=== PATIENT | male | born 1955 | race Caucasian/White ===

== ENCOUNTER 2017-11-27 08:36 | Emergency (ER) | payer BC ==
[~2017-11-27] VITALS: Ht 172.7 cm; Wt 110.9 kg
[2017-11-27] MEDS ORDERED: epiNEPHrine 1 mg/ml inj SQ STA ×2 (08:46→09:35)
[2017-11-27] MEDS ORDERED: normal saline 1000ML IV soln IVB ONE (08:50)
[2017-11-27] MEDS ORDERED: tranexamic acid 100mg/ml inj. IV ONE (08:50)
[2017-11-27] MEDS ORDERED: methylPREDNISolone sod succ 125mg/2ml vial IV ONE (08:50)
[2017-11-27] MEDS ORDERED: diphenhydrAMINE 50 mg/ml inj IV ONE (08:50)
[2017-11-27] MEDS ORDERED: famotidine/PF 10 mg/ml inj IV ONE (08:50)
[2017-11-27 09:07] LABS: BASOPHILS # (AUTO) 0.1 X10'3 (0-0.2); BASOPHILS % (AUTO) 0.6 % (0-1); EOSINOPHILS # (AUTO) 0.1 X10'3 (0-0.9); EOSINOPHILS % (AUTO) 1.1 % (0-6); HEMATOCRIT 49.7 % (42.0-52.0); HEMOGLOBIN 16.9 g/dl (14.0-17.9); LYMPHOCYTES % (AUTO) 29.7 % (21-51); MEAN CORPUSCULAR HEMOGLOBIN 30.1 PG (27.0-31.0); MEAN CORPUSCULAR HGB CONC 34.1 % (33.0-36.5); MEAN CORPUSCULAR VOLUME 88.4 FL (78-98); MEAN PLATELET VOLUME 7.3 FL (7.4-10.4); MONOCYTES # (AUTO) 0.5 X10'3 (0-0.9); MONOCYTES % (AUTO) 4.9 % (2-12); NEUTROPHILS # (AUTO) 6.4 X10'3 (1.8-7.7); NEUTROPHILS % (AUTO) 63.7 % (42-75); PLATELET COUNT 312 X10'3 (140-440); RED BLOOD COUNT 5.62 X10'6 (4.70-6.10); RED CELL DISTRIBUTION WIDTH 13.4 % (11.5-14.5)
[2017-11-27 09:16] LABS: INR 2.9 INR; PROTHROMBIN TIME 28.7 SECONDS (9.0-12.0)
[2017-11-27] MEDS ORDERED: ondansetron/PF 4mg/2ml inj IV ONE (09:20)
[2017-11-27 09:26] LABS: ALANINE AMINOTRANSFERASE 39 U/L (12-78); ALBUMIN 3.8 G/DL (3.4-5.0); ALKALINE PHOSPHATASE 48 IU/L (46-116); ANION GAP 12 (8-16); ASPARTATE AMINO TRANSFERASE 18 U/L (10-37); BILIRUBIN,TOTAL 0.8 MG/DL (0.1-1.0); BLOOD UREA NITROGEN 21 MG/DL (7-18); BUN/CREATININE RATIO 17.6 (5.4-32.0); CALCIUM 9.1 MG/DL (8.5-10.1); CHLORIDE 97 MMOL/L (99-107); CREATININE 1.19 MG/DL (0.60-1.10); GLUCOSE 142 MG/DL (70-104); POTASSIUM 3.8 MMOL/L (3.5-5.1); SODIUM 134 MMOL/L (135-145); TOTAL CARBON DIOXIDE 24.7 MMOL/L (24-32); TOTAL PROTEIN 7.5 G/DL (6.4-8.2); eGFR 62 ML/MIN
[2017-11-27] MEDS ORDERED: AMLO5TAB4 PO (10:40)
[2017-11-27 10:48] VITALS: BP 155/100
== END 2017-11-27 10:45 | disposition home or self-care (01) ==
LOC: ER 08:36
DX: T78.3XXA Angioneurotic edema, initial encounter (principal); I10 Essential (primary) hypertension; Z88.0 Allergy status to penicillin; Z79.899 Other long term (current) drug therapy; Z79.01 Long term (current) use of anticoagulants
CPT/HCPCS: 36415; 80053; 85025; 85610; 86885; 86900; 86901; 96372; 96374; 96375; 99291; J0171; J1200; J2405; J2930; J3490; J7030

== ENCOUNTER 2021-08-04 18:50 | Emergency (ER) | payer MEDICARE ==
[~2021-08-04] VITALS: Ht 175.3 cm; Wt 103.5 kg
[~2021-08-04 18:50] MED LIST: AMLO5TAB4 PO
--- NOTE | 2021-08-04 19:45 | NUR ---
Pt presents to the ed with c/o left eye pain and H/As on intensity of 03/09, the pt states his pain started over a month ago when he had upper resp congestions with left earache and sinus congestion; the pt states he's up to date on all the COVID vaccines; the pt states he went to the [facility] where he was prescribed three different antibiotics - Keflex and Z-juan jose over the course of six weeks; the pt states he visited his eye doctor a week ago, whre he was prescribed steroid eye drops which aggravated his eye problem; the pt is A/O, appears to be in NAD; he denies fever/chills, sorethroat, SOB, CP, N/V/D; awaits provider.
[2021-08-04 21:24] LABS: BASOPHILS % (AUTO) 0.4 % (0-1); EOSINOPHILS # (AUTO) 0.2 X10'3 (0-0.9); LYMPHOCYTES # (AUTO) 3.1 X10'3 (1.1-4.8); MEAN CORPUSCULAR HEMOGLOBIN 29.7 PG (27.0-31.0); MEAN CORPUSCULAR HGB CONC 33.3 g/dL (33.0-36.5); MEAN CORPUSCULAR VOLUME 89.1 FL (78-98); MEAN PLATELET VOLUME 7.2 FL (7.4-10.4); MONOCYTES # (AUTO) 0.9 X10'3 (0-0.9); MONOCYTES % (AUTO) 8.3 % (2-12); NEUTROPHILS % (AUTO) 62.3 % (42-75); PLATELET COUNT 338 X10'3 (140-440); RED BLOOD COUNT 5.05 X10'6 (4.70-6.10); RED CELL DISTRIBUTION WIDTH 13.2 % (11.5-14.5); WHITE BLOOD COUNT 11.3 X10'3 (4.5-11.0)
[2021-08-04 21:35] LABS: ALANINE AMINOTRANSFERASE 41 U/L (12-78); ALBUMIN 3.9 G/DL (3.4-5.0); ALBUMIN/GLOBULIN RATIO 1.2 (1.1-1.5); ALKALINE PHOSPHATASE 36 IU/L (46-116); ANION GAP 12 (8-16); ASPARTATE AMINO TRANSFERASE 20 U/L (10-37); BILIRUBIN,TOTAL 0.4 MG/DL (0.1-1.0); BLOOD UREA NITROGEN 24 MG/DL (7-18); BUN/CREATININE RATIO 18.6 (5.4-32.0); CALCIUM 9.4 MG/DL (8.5-10.1); CHLORIDE 101 MMOL/L (99-107); CREATININE 1.29 MG/DL (0.60-1.10); GLUCOSE 158 MG/DL (70-104); POTASSIUM 3.7 MMOL/L (3.5-5.1); SODIUM 137 MMOL/L (135-145); TOTAL PROTEIN 7.2 G/DL (6.4-8.2); eGFR 56 ML/MIN
[2021-08-04] MEDS ORDERED: ondansetron/PF 4mg/2ml inj IV ONE (22:00)
--- NOTE | 2021-08-04 22:00 | NUR ---
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
[2021-08-04] MEDS: morphine 4 MG/ML inj SYRINge IV PRN ×2 (22:39→22:49)
[2021-08-04 22:50] VITALS: BP 153/98
--- NOTE | 2021-08-04 22:57 | NUR ---
Pt d/c, and will follow with [facility] tomorrow.
== END 2021-08-04 22:56 | disposition home or self-care (01) ==
LOC: ER 18:51
DX: R22.9 Localized swelling, mass and lump, unspecified (principal); H57.12 Ocular pain, left eye; G43.909 Migraine, unspecified, not intractable, without status migrainosus; I25.10 Atherosclerotic heart disease of native coronary artery without angina pectoris; I10 Essential (primary) hypertension; I25.2 Old myocardial infarction; Z88.0 Allergy status to penicillin; Z79.899 Other long term (current) drug therapy
CPT/HCPCS: 36415; 70480; 80053; 85025; 85610; 96374; 96375; 99284; J2270; J2405

== ENCOUNTER 2021-08-06 09:42 | Emergency (ER) | payer MEDICARE ==
[~2021-08-06] VITALS: Ht 175.3 cm; Wt 102.7 kg
[2021-08-06 10:05] VITALS: BP 142/93
[2021-08-06] MEDS ORDERED: HYDR-3968 PO (10:43)
[2021-08-06] MEDS ORDERED: HYDR-3972 PO (10:47)
[2021-08-06] MEDS ORDERED: ONDA8TAB13 PO (10:57)
[2021-08-06] MEDS ORDERED: DOCU-148 PO (10:57)
[2021-08-06] MEDS: morphine 4 MG/ML inj SYRINge IM ONE (11:03)
== END 2021-08-06 11:10 | disposition home or self-care (01) ==
LOC: ER 09:43
DX: R22.0 Localized swelling, mass and lump, head (principal); H57.12 Ocular pain, left eye; R51.9 Headache, unspecified; I25.10 Atherosclerotic heart disease of native coronary artery without angina pectoris; I10 Essential (primary) hypertension; I25.2 Old myocardial infarction; Z88.0 Allergy status to penicillin; Z88.8 Allergy status to other drugs, medicaments and biological substances; Z79.899 Other long term (current) drug therapy
CPT/HCPCS: 99283